=== PATIENT | female | born 1990 | race American Indian/Alaskan Native ===

== ENCOUNTER 2016-08-10 02:22 | Emergency (ER) | payer MEDICAID ==
[2016-08-10 02:39] VITALS: BP 123/80
[2016-08-10] MEDS ORDERED: MOTRIN PO ONE (05:10)
--- NOTE | 2016-08-10 05:17 | Emergency Department Report ---
ED Lower Extremity HPI - General Chief Complaint: Extremity Injury, Lower Stated Complaint: SWELLING LEFT ANKLE Time Seen by Provider: 08/10/16 04:41 Source: patient, EMS Mode of arrival: Wheelchair Limitations: No Limitations - History of Present Illness Initial Comments: This is a 26-year-old female well-nourished with nontoxic or ill in appearance that presents with left ankle pain and swelling since yesterday 9 am. Patient denies any trauma to ankle area. Denies numbness, tingling, fever, chills, nausea, vomiting, abdominal pain, headache, chest pain, shortness of breath, or abnormal gait. Patient has a limited range of motion due to pain to ankle area. Patient denies any trauma to the area. Patient denies any allergies or past medical history. MD Complaint: ankle injury -: Gradual, days(s) (1) Injury: Ankle: Left Type of Injury: unknown Severity: moderate Severity scale (0 -10): 9 Improves With: nothing Worsens With: nothing Associated Symptoms: swelling, able to partially bear weight, ambulatory. denies: snap/pop sensation, numbness, tingling, unable to bear weight - Related Data Previous Rx's Medication Instructions Recorded Last Taken Type Cephalexin [Keflex] 500 mg PO Q8HR 5 Days 08/10/16 Unknown Rx Ibuprofen [Motrin 600 MG tab] 600 mg PO Q8H PRN #15 tablet 08/10/16 Unknown Rx predniSONE [Deltasone] 20 mg PO BID #10 tab 08/10/16 Unknown Rx Allergies Allergy/AdvReac Type Severity Reaction Status Date / Time No Known Allergies Allergy Verified 08/10/16 02:39 ED Review of Systems ROS: Stated complaint: SWELLING LEFT ANKLE Other details as noted in HPI Constitutional: denies: chills, fever Eyes: denies: eye pain, eye discharge, vision change ENT: denies: ear pain, throat pain Respiratory: denies: cough, shortness of breath, wheezing Cardiovascular: denies: chest pain, palpitations Endocrine: no symptoms reported Gastrointestinal: denies: abdominal pain, nausea, diarrhea Genitourinary: denies: urgency, dysuria, discharge Musculoskeletal: denies: back pain, joint swelling, arthralgia Skin: denies: rash, lesions Neurological: denies: headache, weakness, paresthesias Psychiatric: denies: anxiety, depression Hematological/Lymphatic: denies: easy bleeding, easy bruising ED Past Medical Hx - Past Medical History Previous Medical History?: No - Surgical History Past Surgical History?: Yes Additional Surgical History: x1 - Social History Smoking Status: Current Some Day Smoker Substance Use Type: None - Medications Home Medications: Home Medications Medication Instructions Recorded Confirmed Last Taken Type Cephalexin [Keflex] 500 mg PO Q8HR 5 Days 08/10/16 Unknown Rx Ibuprofen [Motrin 600 MG tab] 600 mg PO Q8H PRN #15 tablet 08/10/16 Unknown Rx predniSONE [Deltasone] 20 mg PO BID #10 tab 08/10/16 Unknown Rx ED Physical Exam - General Limitations: No Limitations General appearance: alert, in no apparent distress - Head Head exam: Present: atraumatic, normocephalic, normal inspection - Eye Eye exam: Present: normal appearance, PERRL, EOMI. Absent: scleral icterus, conjunctival injection, nystagmus, periorbital swelling, periorbital tenderness Pupils: Present: normal accommodation - ENT ENT exam: Present: normal exam, normal orophraynx, mucous membranes moist, TM's normal bilaterally, normal external ear exam - Neck Neck exam: Present: normal inspection, full ROM. Absent: tenderness, meningismus, lymphadenopathy, thyromegaly - Respiratory Respiratory exam: Present: normal lung sounds bilaterally. Absent: respiratory distress, wheezes, rales, rhonchi, stridor, chest wall tenderness, accessory muscle use, decreased breath sounds, prolonged expiratory - Cardiovascular Cardiovascular Exam: Present: regular rate, normal rhythm, normal heart sounds. Absent: bradycardia, tachycardia, irregular rhythm, systolic murmur, diastolic murmur, rubs, gallop - GI/Abdominal GI/Abdominal exam: Present: soft, normal bowel sounds. Absent: distended, tenderness, guarding, rebound, rigid, diminished bowel sounds - Extremities Exam Extremities exam: Present: normal inspection, full ROM, normal capillary refill , calf tenderness. Absent: tenderness, pedal edema, joint swelling - Expanded Lower Extremity Exam Left Hip exam: Present: full ROM, tenderness. Absent: swelling, abrasion Upper Leg exam: Present: normal inspection, full ROM. Absent: tenderness, swelling Knee exam: Present: normal inspection, full ROM, full knee extension. Absent: tenderness, swelling, pain w/ pronation/supination, posterior draw sign, pain/ laxity with valgus, pain/laxity with varus Lower Leg exam: Present: normal inspection, full ROM. Absent: tenderness, swelling, abrasion, laceration, ecchymosis, erythema, palpable cord, Juan's sign Ankle exam: Present: normal inspection, full ROM, tenderness (lateral), swelling (lateral), erythema. Absent: abrasion, laceration, ecchymosis, crepidus, dislocation, anterior draw sign Foot/Toe exam: Present: normal inspection, full ROM. Absent: tenderness, swelling, abrasion, laceration, dislocation, erythema, amputation, puncture wound, foreign body, tenderness at base of 5th metatarsal Neuro vascular tendon exam: Present: no vascular compromise. Absent: pulse deficit, abnormal cap refill, motor deficit, sensory deficit, extremity cold to touch, foot drop Gait: Positive: observed and normal 1 - swelling with tenderness - Back Exam Back exam: Present: normal inspection, full ROM. Absent: tenderness, CVA tenderness (R), CVA tenderness (L), muscle spasm, paraspinal tenderness, vertebral tenderness, rash noted - Neurological Exam Neurological exam: Present: alert, oriented X3, CN II-XII intact, normal gait - Psychiatric Psychiatric exam: Present: normal affect, normal mood - Skin Skin exam: Present: warm, dry, intact, normal color. Absent: rash ED Course Vital Signs 08/10/16 02:33 Temperature 97.9 F Pulse Rate 69 Respiratory 18 Rate Blood Pressure 123/80 O2 Sat by Pulse 98 Oximetry ED Lower Extremity MDM - Medical Decision Making Ed course: This is a 26-year-old female that presents with left ankle strain vs. cellulitis 1- after my physical exam, pt received an xray of left ankle 2- Patient received ibuprofen 800 mg by mouth in the ED 3- Due to my clinical findings of swelling, redness, and warmth to the area, patient received Keflex and prednisone at that time of discharge. Patient was instructed to finish full course of antibiotics and prednisone as prescribed. 4- patient was also instructed to follow-up with her primary care doctor in 3-5 days or if symptoms worsen return to the emergency room as soon as possible possible. 5- at time time of discharge, the patient does not seem toxic or ill in appearance. No acute signs of distress noted. Patient agrees to discharge treatment plan of care. No further questions noted by the patient. 6- Onesimo wrap was applied to ankle and patient received crutches with instructions. Patient was instructed to rest, elevate, ice extremity and for follow-up with Dr. Reyes orthopedic in 3-5 days. Critical care attestation.: If time is entered above; I have spent that time in minutes in the direct care of this critically ill patient, excluding procedure time. ED Disposition Clinical Impression: Left ankle strain Qualifiers: Encounter type: initial encounter Qualified Code(s): S96.912A - Strain of unspecified muscle and tendon at ankle and foot level, left foot, initial encounter Cellulitis Qualifiers: Site of cellulitis: unspecified site Qualified Code(s): L03.90 - Cellulitis, unspecified Disposition: TO HOME OR SELFCARE Is pt being admited?: No Does the pt Need Aspirin: No Condition: Stable Instructions: Cellulitis (ED), Ibuprofen (By mouth), Cephalexin (By mouth), Prednisone (By mouth), RICE Therapy (ED), Crutch Instructions (ED) Additional Instructions: Rest, elevate, ice extremity and follow up with Dr. Reyes (orthopedic) in 3-5 days. Follow-up with her primary care doctor in 3-5 days or if symptoms worsen report back to emergency room as was possible. Take full course of antibiotics and prednisone as prescribed. Prescriptions: Cephalexin [Keflex] 500 mg PO Q8HR 5 Days Ibuprofen [Motrin 600 MG tab] 600 mg PO Q8H PRN #15 tablet PRN Reason: Pain predniSONE [Deltasone] 20 mg PO BID #10 tab Referrals: PRIMARY CAREMD [Primary Care Provider] - 3-5 Days [facility] [Outside] - 3-5 Days [facility] [Outside] - 3-5 Days JOSEPHINE DOWNING MD [Staff Physician] - 3-5 Days JOSÉ REYES MD [Staff Physician] - 3-5 Days Forms: Work/School Release Form(ED)
--- NOTE | 2016-08-10 05:32 | XRay Report ---
FINAL REPORT PROCEDURE: XR ANKLE 3 LT TECHNIQUE: Left ankle radiographs, AP, lateral, and oblique views. CPT 48232 HISTORY: swelling and pain to ankle LEFT COMPARISON: No prior studies are available for comparison. FINDINGS: Fracture (s) and/or Dislocation(s): None . Alignment: Normal . Joint space(s): Normal . Soft tissues: Mild diffuse soft tissue swelling. Bone mineralization: Normal . Foreign bodies: None . Calcaneal spurring: None . IMPRESSION: No evidence of an acute fracture or dislocation. Mild diffuse soft tissue swelling..
== END 2016-08-10 06:14 | disposition home or self-care (01) ==
LOC: ED 02:22
DX: S96.912A Strain of unspecified muscle and tendon at ankle and foot level, left foot, initial encounter (principal); L03.90 Cellulitis, unspecified; F17.200 Nicotine dependence, unspecified, uncomplicated; X58.XXXA Exposure to other specified factors, initial encounter; Y93.89 Activity, other specified; Y99.8 Other external cause status; Y92.89 Other specified places as the place of occurrence of the external cause
CPT/HCPCS: 36415; 84702